=== PATIENT | female | born 1950 | race Caucasian/White ===

== ENCOUNTER → 2017-12-12 | Outpatient (CLI) | payer MEDICARE | LOC: MC.RAD 10:14 | DX: Z12.31 Encounter for screening mammogram for malignant neoplasm of breast (principal) ==

== ENCOUNTER 2020-12-09 11:07 | Day surgery (SDC) | payer MEDICARE ==
[2020-12-09] VITALS (7 sets, daily range): BP systolic 111–141; BP diastolic 58–85; PULSE 46–68; TEMP 97.4–98
[~2020-12-09] VITALS: Ht 162.6 cm; Wt 96.1 kg
[~2020-12-09 11:07] MED LIST: CIPRO 500MG TA500 MG PO; LIPITOR 10MG10 MG PO; MICROZIDE12.5 MG PO; SYNTHROID0.05 MG/TA PO
--- NOTE | 2020-12-09 15:03 | NUR ---
1205 PATIENT ARRIVES TO [facility]. AMBULATED TO CHAIR WITH 1:1 ASSIST. PATIENT REPORTS FEELING VERY TIRED AND A LITTLE "WINDED". WILL MONITOR. VSS. PATIENT REQUESTED WATER TO DRINK. PATIENT'S GRANDDAUGHTER NOTIFIED THAT PROCEDURE IS COMPLETE VIA TELEPHONE. 1220 PATIENT TOLERATES PO WELL. REQUESTING JELLO. VSS. HR LOW IN THE 40'S. WILL CONTINUE TO MONITOR. 1235 PATIENT TOLERATED JELLO WELL. PATIENT REPORTS FEELING MORE AWAKE. HR LOW WHILE PATIENT IS NOT DISTURBED. INCREASES TO 60'S WHILE STIMULATED. WILL CONTINUE TO MONITOR. 1250 PATIENT TAKING ORANGE JUICE PO. TOLERATING WELL. REPORTS CONTINUING TO FEEL MORE ALERT. DENIES COMPLAINT AT THIS TIME. 1305 VSS. HR CONINUES AT MID 40-60'S. DENIES SYMPTOMS. MONITOR SHOWS SB WHILE PATIENT IS RESTING, BUT NSR WITH STIMULATION. PATIENT DENIES ANY COMPLAINTS. 1335 HR CONTINUES TO INCREASE. PATIENT DENIES COMPLAINT. REPORTS FEELING MORE ALERT. D/C INSTRUCTIONS GIVEN IN WRITING AND VERBALLY. PATIENT VERBALIZED UNDERSTANDING. QUESTIONS INVITED AND ANSWERED. IV D/C'D. CATH INTACT. TOLERATED WELL. PATIENT UP GETTING DRESSED. 1350 PATIENT D/C'D TO POV WITH FAMILY VIA W/C. PATIENT TAKES PERSONAL BELONGINGS AND PATIENT EDUCATION WITH HER. HR HAS RETURNED TO PRE-PROCEDURE NUMBERS.
== END 2020-12-09 13:50 | disposition home or self-care (01) ==
LOC: SDCO 11:07
DX: K80.50 Calculus of bile duct without cholangitis or cholecystitis without obstruction (principal); K83.8 Other specified diseases of biliary tract; K31.9 Disease of stomach and duodenum, unspecified; Z79.899 Other long term (current) drug therapy; I10 Essential (primary) hypertension; E78.5 Hyperlipidemia, unspecified
CPT/HCPCS: C1769; J2704; J7030; Q9967